=== PATIENT | male | born 2000 | race Two or more races ===

== ENCOUNTER 2023-01-01 14:49 | Emergency (ER) | payer OTHER ==
[2023-01-01 14:57] VITALS: BP 100/40; PULSE 81; RESP 20; TEMP 98.6; BMI 29.0
[2023-01-01] MEDS ORDERED: SODIUM CHLORIDE 0.9% 500 ML INFUS.BAG IV ONE (15:18)
[2023-01-01 16:02] LABS: BASO % 0.3 % (0-2.0); EOS % 0.3 % (0-4.5); HEMOGLOBIN 14.8 GM/dL (11.7-16.9); LYMPH % 11.7 % (8-40); MCH 27.7 pg (25.7-33.7); MCHC 33.6 g/dl (32.0-35.9); MEAN CELL VOLUME 82.3 fl (80-96); MEAN PLT VOLUME 8.1 fl (7.5-11.1); MONO % 3.9 % (3.8-10.2); NEUT % 83.8 % (42.8-82.8); PLATELET COUNT 339 10^3/uL (134-434); RBC 5.35 M/mm3 (4.00-5.60); RDW 13.1 % (11.9-15.9); WHITE BLOOD COUNT 12.4 K/mm3 (4.0-10.0)
[2023-01-01 16:26] LABS: POTASSIUM 3.7 mmol/L (3.5-5.1)
[2023-01-01 16:28] LABS: BLOOD UREA NITROGEN 15.6 mg/dL (7-18); CALCIUM 9.7 mg/dL (8.5-10.1)
[2023-01-01 16:29] LABS: ALBUMIN 4.2 g/dl (3.4-5.0); MAGNESIUM 2.7 mg/dL (1.8-2.4)
[2023-01-01 16:32] LABS: CREATININE 1.3 mg/dL (0.55-1.3)
[2023-01-01 16:34] LABS: BILIRUBIN,TOTAL 0.2 mg/dL (0.2-1); TOT PROT 7.7 g/dl (6.4-8.2)
[2023-01-01 17:38] LABS: ERYTHROCYTE SEDIMENTATION RATE 3 mm/hr (0-10)
== END 2023-01-01 17:46 | disposition home or self-care (01) ==
LOC: JER 14:49
DX: R55 Syncope and collapse (principal); R00.2 Palpitations; R42 Dizziness and giddiness; R11.0 Nausea; Z20.822 Contact with and (suspected) exposure to COVID-19
CPT/HCPCS: 0241U-QW; 36415; 71045-TC-FY; 80053; 82550; 82962; 83735; 84484; 85025; 85651; 93005; 93010; 99285-25